=== PATIENT | male | born 1950 | race Caucasian/White ===

== ENCOUNTER 2018-08-03 05:38 | Day surgery (SDC) | payer MEDICARE, OTHER ==
[2018-08-03] MEDS ORDERED: Dextrose 5%-Lactated Ringers 1,000 ML IV SCH (06:00)
[2018-08-03] MEDS ORDERED: Meropenem 500 MG in Sodium Chloride 0.9% 50 ML IV ONE (06:00)
[2018-08-03] MEDS ORDERED: fentaNYL 100 MCG/2 ML SDV ONE (06:57)
[2018-08-03] MEDS ORDERED: Propofol 200 MG/20 ML SDV ONE ×2 (06:57→08:17)
[2018-08-03] MEDS ORDERED: Midazolam 1 MG/ML 2 ML SDV ONE (06:57)
--- NOTE | 2018-08-08 10:54 | OR ---
DATE OF PROCEDURE: 08/03/2018 SURGEON: Vlad Junior MD PREOPERATIVE DIAGNOSIS: Indication for screening colonoscopy with a family history of colorectal carcinoma. POSTOPERATIVE DIAGNOSIS: Colorectal polyps x4. OPERATIVE PROCEDURE: Flexible colonoscopy with: 1. Excision of colon polyps by biopsy forceps x2 (90412). 2. Excision of colorectal polyps x2 by snare technique (22060). ANESTHESIA: IV sedation. INDICATION FOR PROCEDURE: A 68-year-old presenting for a screening colonoscopy. He does have a history of his mother having rectal carcinoma, and plan is to proceed with a colonoscopy with biopsies and/or polypectomy as indicated. Potential risks including bleeding and perforation were discussed, and the patient wishes to proceed. DETAILS OF PROCEDURE: The patient was taken to the operating room and placed in a left lateral decubitus position. IV sedation was administered, after which the initial digital rectal exam was performed, which was unremarkable. Colonoscope was then passed into the rectum with retroflexion revealing uncomplicated hemorrhoidal columns. The scope was eventually passed to the cecum. Prep was fairly good with only a small amount of liquid stool present. The patient overall had 4 polyps. One of these was in the ascending colon and was only around 2 to 3 mm. The others were quite small; one was in the rectum, this also being in the 2 to 3 mm size. Both of these were excised by means of the biopsy forceps. Two slightly larger polyps, but less than 1 cm in size, were present in the hepatic flexure and the distal sigmoid colon. These were both excised by means of snare technique and also then sent for histologic evaluation. Good hemostasis at the biopsy and snare sites was confirmed and the procedure concluded. The patient was taken to the recovery room in satisfactory condition. Assuming that all of these polyps are benign, the patient should undergo a repeat colonoscopy in 2 years. Vlad Junior MD /[id number]
== END 2018-08-03 09:32 | disposition home or self-care (01) ==
LOC: JP.SDS 05:38
PROVIDERS: ATTEND Surgery
DX: Z12.11 Encounter for screening for malignant neoplasm of colon (principal); D12.2 Benign neoplasm of ascending colon; D12.3 Benign neoplasm of transverse colon; D12.5 Benign neoplasm of sigmoid colon; K62.1 Rectal polyp; I25.10 Atherosclerotic heart disease of native coronary artery without angina pectoris; I10 Essential (primary) hypertension; E78.5 Hyperlipidemia, unspecified; F41.9 Anxiety disorder, unspecified; F17.200 Nicotine dependence, unspecified, uncomplicated; Z95.1 Presence of aortocoronary bypass graft; Z80.0 Family history of malignant neoplasm of digestive organs
CPT/HCPCS: 88305; J2185; J2250; J2704; J3010; J7042; J7050

== ENCOUNTER 2021-05-05 07:15 | Day surgery (SDC) | payer MEDICARE, OTHER ==
[~2021-05-05 07:15] MED LIST: Midazolam 1 MG/ML 2 ML SDV ONE; Propofol 200 MG/20 ML SDV ONE; fentaNYL 100 MCG/2 ML SDV ONE
[2021-05-05] MEDS ORDERED: Dextrose 5%-Lactated Ringers 1,000 ML IV SCH (08:30)
[2021-05-05] MEDS ORDERED: Meropenem 500 MG in Sodium Chloride 0.9% 50 ML IV ONE (08:30)
== END 2021-05-05 11:20 | disposition home or self-care (01) ==
LOC: JP.SDS 07:15
PROVIDERS: ATTEND Surgery
DX: Z12.11 Encounter for screening for malignant neoplasm of colon (principal); I25.10 Atherosclerotic heart disease of native coronary artery without angina pectoris; I10 Essential (primary) hypertension; F41.9 Anxiety disorder, unspecified; F17.200 Nicotine dependence, unspecified, uncomplicated; Z80.0 Family history of malignant neoplasm of digestive organs
CPT/HCPCS: 88305; J2185; J2250; J2704; J3010; J7121

== ENCOUNTER 2024-12-15 20:38 | Observation (INO) | payer MEDICARE, OTHER ==
[2024-12-15 21:00] LABS: BASOPHILS ABSOLUTE AUTO 0.09 K/uL (0.00-0.10); BASOPHILS PERCENT AUTO 0.8 % (0.1-1.3); EOSINOPHILS ABSOLUTE AUTO 0.36 K/uL (0.00-0.40); EOSINOPHILS PERCENT AUTO 3.1 % (0.0-5.4); IMMATURE GRAN ABSOLUTE AUTO 0.05 K/uL (0.00-0.23); IMMATURE GRAN PERCENT AUTO 0.4 % (0.0-0.7); LYMPHOCYTES ABSOLUTE AUTO 1.77 K/uL (0.8-3.3); LYMPHOCYTES PERCENT AUTO 15.1 % (11.4-47.7); MONOCYTES ABSOLUTE AUTO 0.49 K/uL (0.20-0.90); MONOCYTES PERCENT AUTO 4.2 % (3.3-12.6); NEUTROPHILS ABSOLUTE AUTO 8.93 K/uL (1.0-7.6); NEUTROPHILS PERCENT AUTO 76.4 % (40.0-78.1); PLATELET COUNT,PLT 232 K/uL (130-375); RED BLOOD CELL COUNT 4.09 M/uL (4.14-5.76); WHITE BLOOD CELL COUNT,WBC 11.7 K/uL (3.2-11.0)
[2024-12-15 21:16] LABS: BLOOD UREA NITROGEN,BUN 16.0 mg/dL (7-18); CARBON DIOXIDE,CO2 30.0 mmol/L (21-32); CHLORIDE,CL 104.0 mmol/L (100-108); CREATININE 0.9 mg/dL (0.8-1.3); EST CRCL DRUG DOSING (CG) 68.34 mL/min; ESTIMATED GFR 90.0 mL/min (>60); GLUCOSE RANDOM 169.0 mg/dL (74-106); POTASSIUM,K 3.3 mmol/L (3.6-5.2); SODIUM,NA 140.0 mmol/L (140-148)
[2024-12-15 21:18] LABS: INR 2.9
[2024-12-15] MEDS ORDERED: Sennosides/Docusate Sodium 50-8.6 MG Tab PO PRN (23:07)
[2024-12-15] MEDS ORDERED: Ondansetron 4 MG Tab.DIS PO PRN (23:07)
[2024-12-15] MEDS ORDERED: Ondansetron 4 MG/2 ML SDV IV PRN (23:07)
[2024-12-15] MEDS ORDERED: Magnesium Hydroxide 400 MG/5 ML Susp 30 ML Cup PO PRN (23:07)
[2024-12-15] MEDS: Potassium Chloride 20 MEQ Tab.ER PO ONE (23:49)
[2024-12-16 04:47] LABS: PLATELET COUNT,PLT 211.0 K/uL (130-375); RED BLOOD CELL COUNT 3.55 M/uL (4.14-5.76); WHITE BLOOD CELL COUNT,WBC 10.7 K/uL (3.2-11.0)
[2024-12-16 05:04] LABS: INR 2.5
== END 2024-12-16 10:26 | disposition home or self-care (01) ==
LOC: JP.ED 20:38 → JP.MS 23:07
PROVIDERS: ADMIT Internal Medicine; ATTEND Internal Medicine
DX: K62.5 Hemorrhage of anus and rectum (principal); I10 Essential (primary) hypertension; F17.200 Nicotine dependence, unspecified, uncomplicated; Z95.2 Presence of prosthetic heart valve; Z79.01 Long term (current) use of anticoagulants; Z79.899 Other long term (current) drug therapy
CPT/HCPCS: 36415; 36430; 80048; 83605; 85025; 85027; 85610; 86850; 86900; 86901; 86920; 86922; 99222; 99238; 99285; A9270; J7030; P9017; G0378